=== PATIENT | male | born 1995 | race Caucasian/White ===

== ENCOUNTER 2022-07-23 08:52 | Emergency (ER) | payer MEDICAID ==
[~2022-07-23] VITALS: Ht 188 cm; Wt 114.0 kg
[2022-07-23 10:15] VITALS: BP 157/72
[2022-07-23] MEDS ORDERED: NALO4SPR BOTHNSTRLS (10:25)
== END 2022-07-23 10:30 | disposition home or self-care (01) ==
LOC: ER 08:52
DX: T40.411A Poisoning by fentanyl or fentanyl analogs, accidental (unintentional), initial encounter (principal); Y92.830 Public park as the place of occurrence of the external cause
CPT/HCPCS: 99283

== ENCOUNTER 2025-06-17 21:21 | Emergency (ER) | payer MEDICAID ==
[~2025-06-17] VITALS: Ht 190.5 cm; Wt 112.0 kg
[~2025-06-17 21:21] MED LIST: NALO4SPR BOTHNSTRLS
[2025-06-17 21:22] VITALS: O2SAT 98
[2025-06-17 21:25] VITALS: BP 187/111; PULSE 120; RESP 16; TEMP 36.7; O2SAT 98
== END 2025-06-17 22:53 | disposition left against medical advice (07) ==
LOC: ER 21:21
DX: R20.0 Anesthesia of skin (principal); Z53.21 Procedure and treatment not carried out due to patient leaving prior to being seen by health care provider; Z79.899 Other long term (current) drug therapy
CPT/HCPCS: 93005; 99281